=== PATIENT | female | born 1980 | race Caucasian/White ===

== ENCOUNTER → 2018-10-30 17:40 | Outpatient (CLI) | payer OTHER, SELFPAY ==
--- NOTE | 2018-10-30 17:48 | DI.MRI.S_ITS ---
PROCEDURE: MR HEAD/BRAIN WO CON INDICATIONS: MIGRAINE TECHNIQUE: Noncontrast axial T1 spin echo, axial T2 fast spin echo, sagittal and axial FLAIR, coronal T2 fast spin echo, axial gradient echo, axial diffusion and ADC through the brain. COMPARISON: None. FINDINGS: Image quality: Excellent. CSF Spaces: Basal cisterns are patent. There is extra-axial cystic structure posterior to cerebellum measuring 2.1 x 3.9 x 1.9 cm. It demonstrates MRI signal identical to CSF on all sequences, compatible with an arachnoid cyst. Ventricles are normal in size and shape. Brain: No intracranial masses or hemorrhage. Cruz/white matter interface is normal. Brainstem appears normal. Diffusion-weighted images demonstrate no acute ischemic insult. No chronic ischemic insults. Normal intravascular flow voids are present. Skull and face: Calvarium has normal marrow signal. Orbits appear normal. Sinuses: Sinuses and mastoids are clear. IMPRESSION: 1. A 2.1 x 3.9 x 1.0 cm arachnoid cyst posterior to cerebellum. 2. Otherwise normal exam. Dictated by: Serena Glover M.D. on 10/30/2018 at 22:44 Approved by: Serena Glover M.D. on 10/31/2018 at 9:31
== END ==
PROVIDERS: PCP Family Medicine; Visit Provider Family Medicine
DX: G43.909 Migraine, unspecified, not intractable, without status migrainosus (principal); G93.0 Cerebral cysts
CPT/HCPCS: 70551

== ENCOUNTER → 2020-06-23 11:05 | Outpatient (CLI) | payer OTHER, SELFPAY ==
[2020-06-23 12:48] LABS: TSH w/ Reflex to FT4 0.55 uIU/mL (0.47-4.68)
== END ==
PROVIDERS: PCP Registered Nurse; Referring Provider Registered Nurse; Visit Provider Registered Nurse
DX: F32.9 Major depressive disorder, single episode, unspecified (principal); L65.9 Nonscarring hair loss, unspecified
CPT/HCPCS: 36415; 84443

== ENCOUNTER → 2020-08-11 10:20 | Outpatient (CLI) | payer OTHER, SELFPAY ==
[2020-08-11 11:00] LABS: COVID19 -Nasal RAPID Negative (Negative)
== END ==
PROVIDERS: PCP Registered Nurse; Visit Provider Specialist
DX: Z01.812 Encounter for preprocedural laboratory examination (principal); Z20.828 Contact with and (suspected) exposure to other viral communicable diseases
CPT/HCPCS: 87635; C9803

== ENCOUNTER 2020-08-12 06:44 | Day surgery (SDC) | payer OTHER, SELFPAY ==
[2020-08-12] VITALS (7 sets, daily range): BP systolic 111–127; BP diastolic 68–77; PULSE 75–93; RESP 15–19; TEMP 36.6–37.2; O2SAT 91–99; BMI 37.5
--- NOTE | 2020-08-12 | PATH_ITS ---
[facility] Accession Number: [id number] . 01 Material submitted: . gastrointestinal site - GASTRIC BX . 01 Clinical history: . SDC . 02 Diagnosis: Stomach, Biopsy: Antral and body type mucosa with no diagnostic abnormality. Negative for Helicobacter by immunohistochemistry. Negative for intestinal metaplasia. Negative for dysplasia and malignancy. [facility] 08/15/2020 1526 Local . 02 Electronically signed: . Arianne Hernández MD, Pathologist NPI- [id number] . 01 Gross description: . GASTRIC BX: Received in formalin are multiple fragment(s) of slaughter, soft tissue measuring 0.4 x 0.4 x 0.1 cm in aggregate submitted entirely in 1 cassette(s) /[facility] 08/13/2020 0817 Local . 02 Microscopic: . An immunohistochemical stain was performed to evaluate for Helicobacter organisms and is negative. The control stain showed appropriate reactivity. . * This test was developed and its performance characteristics determined by [facility]. It has not been cleared or approved by the U.S. Food and Drug Administration. The FDA has determined that such clearance or approval is not necessary. This test is used for clinical purposes. It should not be regarded as investigational or for research. . 02 Pathologist provided ICD-10: R10.13 . 02 CPT . 703755, [id number] Performed at: 01 [facility] [address], [place], [place] [id number] MD Chung Mercedes MD Phone: [phone] Performed at: 02 [facility] [place] [address] [place], [place] [id number] MD Arianne Hernández MD Phone: [phone]
[2020-08-12] MEDS: LACTATED RINGERS 1,000 ML 100 ML IV (07:34)
--- NOTE | 2020-08-12 07:47 | PM.PREOP ---
Pre-operative Note COVID-19 COVID-19 status: Negative Interval Note History & Physical reviewed/Exam performed by Physician: Yes Changes to H&P: No ASA Class (for procedural sedation): II
[2020-08-12] MEDS: LIDOCAINE 4% SOLN 50 ML 20 ML TOP (08:04)
[2020-08-12] MEDS: fentaNYL 250 MCG/5 ML INJ IV (08:05)
[2020-08-12] MEDS: MIDAZOLAM 5 MG/5 ML VIAL IV (08:07)
--- NOTE | 2020-08-12 08:17 | PM.OP.ENDO ---
Operative Date/Time/Diagnoses Date of procedure: 08/12/20 Time of procedure: 08:17 Pre-op diagnosis: epigastric pain Post-op diagnosis: other (gastritis, hiatal hernia) Procedure & Clinicians Study performed: Esophagoduodenoscopy Same procedure as scheduled: Yes Indications: 40-year-old female with chronic epigastric pain here for EGD Surgeon: Jamal Nino Procedure Notes Procedure in detail: Patient placed in left lateral decubitus position. Time out was performed. Procedural sedation was administered with Versed and Fentanyl. A bite block was placed. the scope was inserted into the mouth and advanced through the esophagus and into the stomach. The pylorus was intubated and the duodenum was normal to the 2nd portion. The scope was retroflexed within the stomach and there was a small hiatal hernia. There was mild diffuse gastritis, no ulcers. Several random gastric biopsies were obtained with the biopsy forceps. The scope was withdrawn into the esophagus the Z line was seen at 40 cm from the incisions. There was no Teresa's esophagitis, masses or strictures. Stomach was desufflated and scope removed. Patient tolerated procedure well. Findings: gastritis and hiatal hernia Specimen(s): other (Gastric biopsy) Complications: none Impression: Hiatal hernia, gastritis Post-procedure Recommendations: Start medication(s) (Omeprazole) and Other recommendation (Biopsy results to follow) Follow up: as needed Disposition: same day surgery
== END 2020-08-12 09:42 | disposition home or self-care (01) ==
PROVIDERS: Surgery; PCP Registered Nurse; Referring Provider Specialist; Visit Provider Specialist
PROC: 0DJ08ZZ Inspection of Upper Intestinal Tract, Via Natural or Artificial Opening Endoscopic (ICD-10-PCS; CPT 43235; principal; 2020-08-12 07:45)
DX: K29.50 Unspecified chronic gastritis without bleeding (principal); K44.9 Diaphragmatic hernia without obstruction or gangrene
CPT/HCPCS: 43239; J2250; J3010

== ENCOUNTER → 2020-10-30 17:11 | Outpatient (CLI) | payer OTHER, SELFPAY ==
[2020-10-30 17:28] LABS: Add Manual Diff / Slide Review NO; Basophils Absolute Auto 100 /uL (0-100); Basophils Percent Auto 0.6 % (0-2); Eosinophils Absolute Auto 200 /uL (0-450); Eosinophils Percent Auto 2.3 % (2-4); Hematocrit 42.8 % (36-46); Hemoglobin 14.6 g/dL (12.0-16.0); Lymphocytes Absolute Auto 2600 /uL (1100-4500); Lymphocytes Percent Auto 24.2 % (25-40); Mean Corpuscular HGB Conc 34.1 % (30-36); Mean Corpuscular Hemoglobin 30.3 PG (26-34); Mean Corpuscular Volume 88.8 fL (80-100); Monocytes Absolute Auto 700 /uL (0-900); Monocytes Percent Auto 6.5 % (3-14); Neutrophils Absolute Auto 7200 /uL (1500-7000); Neutrophils Percent Auto 66.4 % (50-75); Platelet Count 290 X10^3/uL (150-400); Red Blood Cell Count 4.82 X10^6/uL (4.0-5.2); Red Cell Distribution Width 12.6 % (11.6-14.8); White Blood Cell Count 10.9 X10^3/uL (4.5-11.0)
[2020-10-30 17:56] LABS: Alanine Aminotransferase 24 IU/L (<35); Albumin 4.5 g/dL (3.5-5.0); Albumin Globulin Ratio 1.3 (1.0-2.8); Alkaline Phosphatase 86 U/L (38-126); Aspartate Aminotransferase 27 IU/L (14-36); BUN Creatinine Ratio 21.9 (6-22); Bilirubin Total 0.9 mg/dL (0.2-1.3); Blood Urea Nitrogen 16 mg/dL (7-17); Calcium 9.7 mg/dL (8.4-10.2); Carbon Dioxide 27 mmol/L (22-32); Chloride 104 mmol/L (98-107); Estimated Glomerular Filt Rate > 60.0 mL/min (>60); Globulin 3.4 g/dL (1.7-4.1); Glucose 97 mg/dL (70-100); HEMOLYSIS < 15 (0-50); Potassium 3.9 mmol/L (3.4-5.1); Sodium 138 mmol/L (137-145); Total Protein 7.9 g/dL (6.3-8.2)
[2020-10-30 17:58] LABS: Hemoglobin A1C% w Est Avg Glu 5.4 % (4.0-6.0)
== END ==
PROVIDERS: PCP Registered Nurse; Referring Provider Registered Nurse; Visit Provider Registered Nurse
DX: R53.83 Other fatigue (principal); Z87.898 Personal history of other specified conditions; F32.9 Major depressive disorder, single episode, unspecified; F41.9 Anxiety disorder, unspecified; K29.70 Gastritis, unspecified, without bleeding
CPT/HCPCS: 36415; 80053; 83036; 85025

== ENCOUNTER → 2020-11-03 10:36 | Outpatient (CLI) | payer OTHER, SELFPAY ==
[2020-11-03 11:18] LABS: BUN Creatinine Ratio 19.7 (6-22); Blood Urea Nitrogen 14 mg/dL (7-17); Estimated Glomerular Filt Rate > 60.0 mL/min (>60); HEMOLYSIS < 15 (0-50); Potassium 4.1 mmol/L (3.4-5.1)
== END ==
PROVIDERS: PCP Registered Nurse; Referring Provider Physician Assistant; Visit Provider Physician Assistant
DX: L29.8 Other pruritus (principal); L64.8 Other androgenic alopecia; L68.0 Hirsutism
CPT/HCPCS: 36415; 82565; 82627; 84132; 84520

== ENCOUNTER → 2020-11-28 10:06 | Outpatient (CLI) | payer OTHER, SELFPAY ==
--- NOTE | 2020-11-28 10:10 | DIET.PN ---
Dietary Progress Note Assessment: 40y F referred to nutrition for help c weight loss and a diet to better manage her IBS/GERD sx. Pt would like to move more, feel healthy, better support joints. IBS manifesting as nausea, horrible stomach cramps and spasms, diarrhea usually has a stressful time and experiences the sx recurring C.diff last occuring in July and treats c abx self-dx c GERD- constant acid reflux doesn't tolerate super acidic, citrus, etoh, sometimes tomato, avoids greasy food, no problem c mint doesn't seem to have problem c coffee (usually has c milk or cream) No eczema or psoriasis Pt has beginnings of arthritis in both knees, toes, right side shoulder all come and go Pt has maybe two migraines per month, cyclic in nature often with menstrual cycle, well controlled now, started at 13yo. had pre-eclampsea birthed baby at 36w, has two children Pt was getting up 4-5x/night had bladder stimulator implanted in back 2w ago, will help stress levels Usual Day: wakes 6am 4c coffee c creamer (dairygold vanilla) c raw sugar does not have breakfast this early takes biotin and collagen, MVI, viviscal hair support, wellbuterin, celexa, spiralactone 10am 10oz unsweetened almond milk, 1c frozen strawberries, 2 scoops protein powder Lunch between 12-2pm- does meal prep for lunches: shredded chicken, tomato sauce, gf noodles (rice/tapioca), broccolini, spaghetti squash usually protein c veggies, every other week starch of some sort) water all day (75-100oz/d) Sn: cheese stick, goldfish, gf pretzels, chips and salsa Dinner: usually Pro and veggies: chicken 2-3x/w, pork every other week, one week breakfast, most always green veggies right now 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 Pt recently started cooking from scratch and meal prepping for weeks at a time which has helped her to eat fewer refined grains (bread, crackers, chips). Pt has skewed sense of hunger and satiety either feeling hunger pains or overfilled. Pt sx do not show clear picture for cut and dry elimination diet, however she does endorse issues after eating alliums and gluten but has not cut either out of her diet completely before. Interventions: 1. To support weight maintenance and weight loss while maintaining healthy relationship to food, introduced pt to hunger scale. Pt endorses eating too quickly and sometimes overeating. Pt will practice assessing her hunger according to the scale, eat at a 3 and stop at an 8. 2. To address continuing sx of GERD/IBS, pt will start a modified-elimination diet to be followed for 4w which completely excludes gluten and alliums. 3. To further investigate upper GI sx, pt will look into Acid Watchers Diet book. Monitoring/Evaluations: f/u in 4w to assess progress, assess symptoms, and continue refining plan to address possible food triggers for sx.
== END ==
PROVIDERS: PCP Registered Nurse; Referring Provider Registered Nurse; Visit Provider Registered Nurse
DX: K58.9 Irritable bowel syndrome, unspecified (principal); K21.9 Gastro-esophageal reflux disease without esophagitis; E66.9 Obesity, unspecified; Z68.36 Body mass index [BMI] 36.0-36.9, adult; Z71.3 Dietary counseling and surveillance
CPT/HCPCS: 97802

== ENCOUNTER → 2021-01-26 13:16 | Outpatient (CLI) | payer OTHER, SELFPAY ==
[2021-01-26 14:49] LABS: COVID19 -Nasal RAPID Negative (Negative)
== END ==
PROVIDERS: PCP Registered Nurse; Visit Provider Student in an Organized Health Care Education/Training Program
DX: Z20.822 Contact with and (suspected) exposure to COVID-19 (principal)
CPT/HCPCS: 87635

== ENCOUNTER 2021-01-28 13:03 | Day surgery (SDC) | payer OTHER, SELFPAY ==
[2021-01-28] VITALS (11 sets, daily range): BP systolic 109–128; BP diastolic 68–83; PULSE 71–98; RESP 14–20; TEMP 36.3–37; O2SAT 88–98; BMI 36.9
--- NOTE | 2021-01-28 | PATH_ITS ---
[facility] Accession Number: [id number] . 01 Material submitted: . PART A: colon - RANDOM COLON BIOPSIES PART B: sigmoid colon - SIGMOID POLYP . 01 Clinical history: . A: HISTORY OF DIARRHEA . 02 Diagnosis: A. Random Colon, Biopsies: Colonic mucosa with no diagnostic abnormality. Negative for active, chronic, and microscopic colitis. Negative for dysplasia and malignancy. . B. Sigmoid Colon, Polyp, Biopsy: Colonic mucosa with thickened muscularis mucosa, most consistent with benign leiomyoma. Negative for atypia, epithelial dysplasia and malignancy. [facility] 02/02/2021 1439 Local . 02 Electronically signed: . Arianne Hernández MD, Pathologist NPI- [id number] . 01 Gross description: . A. Specimen A is received in formalin labeled random colon and consists of multiple slaughter fragments of soft tissue measuring 0.8 x 0.7 x 0.2 cm in aggregate. The specimen is entirely submitted in cassette A1. B. Specimen B is received in formalin labeled sigmoid polyp and consists of a 0.4 x 0.3 x 0.2 cm slaughter-pink fragment of soft tissue, which is entirely submitted in cassette B1. ([id number]) /[facility] 01/29/2021 1559 Local . 02 Pathologist provided ICD-10: R19.7 . 02 CPT . 093293, [id number] Performed at: 01 [facility] [address] [facility], [place], [place] [id number] MD Chung Mercedes MD Phone: [phone] Performed at: 02 [facility] [address] [place], [place] [id number] MD Arianne Hernández MD Phone: [phone]
[2021-01-28] MEDS: SODIUM CHLORIDE 0.9% 1,000 ML 84 ML IV (13:47)
[2021-01-28] MEDS: fentaNYL 250 MCG/5 ML INJ IV (14:31)
[2021-01-28] MEDS: MIDAZOLAM 5 MG/5 ML VIAL IV (14:31)
--- NOTE | 2021-01-28 14:50 | PM.HP.1 ---
History of Present Illness History of Present Illness Date Patient Seen: 01/28/21 Chief complaint: SDC Narrative: Diarrhea Patient History Medical History (Updated 01/28/21 @ 13:36 by Muna Tan RN) Arthritis C. difficile diarrhea Campylobacter diarrhea Other abnormal clinical finding Personal history of peptic ulcer disease Surgical History History of wisdom tooth extraction Hx of cystoscopy Family & Social History Family History Father Melanoma Grandfather Diabetes mellitus Grandmother Dementia Social History: household members spouse,children Tobacco & Substance use: Smoking Status Never smoker alcohol intake current alcohol intake frequency a few times a week Substance Use Type does not use Meds Home Medications and Allergies Home Medications Medication Instructions Recorded Confirmed Type bupropion HCl 150 mg 24 hr tablet, 300 mg PO QAM 11/21/18 01/28/21 History extended release zolmitriptan 5 mg tablet See Rx Instructions PO .COMPLEX 11/08/19 01/28/21 Rx #10 tab galcanezumab-gnlm 120 mg/mL 120 mg SUBCUT QMONTH 06/23/20 01/28/21 History subcutaneous pen injector meloxicam 7.5 mg tablet 7.5 mg PO DAILY PRN 07/15/20 01/28/21 History Allergies Allergy/AdvReac Type Severity Reaction Status Date / Time Sulfa (Sulfonamide Allergy Unknown Verified 08/12/20 07:56 Antibiotics) Exam Vital Signs (past 8 hours): - 01/28/21 13:47 Temperature 97.4 F L Pulse Rate 82 Respiratory Rate 16 Blood Pressure 118/77 Pulse Oximetry 97 Oxygen Delivery Method Room Air Narrative Exam Narrative: Oropharynx free of lesions Chest clear to auscultation percussion Cardiac exam reveals no S3 or murmur Assessment & Plan Assessment & Plan narrative: Intermittent diarrhea rule out microscopic colitis. Risks benefits alternatives have been explained.
--- NOTE | 2021-01-28 14:52 | PM.OP.ENDO ---
Operative Date/Time/Diagnoses Date of procedure: 01/28/21 Pre-op diagnosis: See indication Procedure & Clinicians Study performed: Colonoscopy Same procedure as scheduled: Yes Indications: Intermittent diarrhea Surgeon: Nelly Robledo Procedure Notes Procedure in detail: After informed consent was obtained the patient was placed in left lateral decubitus position. The video colonoscope was introduced the rectum slowly advanced cecum. Ic valve was intubated. On slow withdrawal mucosa was carefully examined. The scope was removed. The patient tolerated procedure well. Blood loss none Complications none Sedation Total sedation time 17 minutes Versed 5 mg fentanyl 150 mg IV titration Findings 1. Sigmoid diverticulosis 2. 10 x 5 mm semi sessile polyp in the sigmoid colon cold snared and removed completely 3. Otherwise negative colonoscopy to cecum. Random biopsies taken to rule out microscopic colitis. 4. Normal terminal ileum We will merely await the results of her biopsies. Most likely she will need follow-up colonoscopy in 5 years.
== END 2021-01-28 16:20 | disposition home or self-care (01) ==
PROVIDERS: PCP Registered Nurse; Referring Provider Internal Medicine Gastroenterology; Visit Provider Internal Medicine Gastroenterology
PROC: 0DJD8ZZ Inspection of Lower Intestinal Tract, Via Natural or Artificial Opening Endoscopic (ICD-10-PCS; CPT 45378; principal; 2021-01-28 14:00)
DX: R19.7 Diarrhea, unspecified (principal); Z87.19 Personal history of other diseases of the digestive system; K57.30 Diverticulosis of large intestine without perforation or abscess without bleeding
CPT/HCPCS: 45385; J2250; J3010

== ENCOUNTER 2022-12-25 21:19 | Emergency (ER) | payer OTHER, SELFPAY ==
[2022-12-25 21:36] VITALS: BP 136/77; PULSE 101; RESP 18; TEMP 37.7; O2SAT 98; BMI 32.5
[2022-12-25 22:36] LABS: Adenovirus Not Detected (Not Detect); B. parapertussis Not Detected (Not Detecte); Bordetella pertussis Not Detected (Not Detecte); Chlamydophila pneumoniae Not Detected (Not Detect); Coronavirus 229E Not Detected (Not Detect); Coronavirus HKU1 Not Detected (Not Detect); Coronavirus NL 63 Not Detected (Not Detect); Coronavirus OC43 Not Detected (Not Detect); Human Metapneumovirus Not Detected (Not Detect); Human Rhinovirus/Enterovirus Not Detected (Not Detect); Influenza A Detected (Not Detect); Influenza B Not Detected (Not Detect); Mycoplasma pneumoniae Not Detected (Not Detect); Parainfluenza Virus 1 Not Detected (Not Detect); Parainfluenza Virus 2 Not Detected (Not Detect); Parainfluenza Virus 3 Not Detected (Not Detect); Parainfluenza Virus 4 Not Detected (Not Detect); Respiratory Syncytial Virus Not Detected (Not Detect); SARS- CoV-2 Not Detected (Not Detecte)
--- NOTE | 2022-12-25 22:52 | ED.URI ---
HPI - URI/Sore Throat General Chief Complaint: Upper Respiratory Symptoms Stated Complaint: Pain in lungs/fever/coughing up blood Time Seen by Provider: 12/25/22 21:36 Source: patient Mode of arrival: Ambulatory History of Present Illness HPI Narrative: This is a 42-year-old female with history of borderline diabetes, anxiety and depression, migraines who presents with complaint of fever, nasal congestion, generalized body aches, little bit of chest discomfort, no shortness of breath, cough with clear sputum and a few streaks of blood. Patient states she is had a runny nose for a couple weeks she is been to Claritin. She started developing a hoarse cough and then started feeling significantly worse in the last day or so. Patient denies nausea or vomiting no diarrhea constipation. No abdominal back or flank pain. No swelling of extremities. No lightheadedness or passing out. She states she is had a prior knee surgery in the past. She is allergic to sulfa. Former smoker, occasional alcohol, no illicit. She states she took a home COVID test which was negative. 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 Related Data Home Medications Medication Instructions Recorded Confirmed galcanezumab-gnlm 120 mg/mL 120 mg SUBCUT QMONTH 06/23/20 12/10/22 subcutaneous pen injector (Emgality Pen) citalopram 40 mg tablet (Celexa) 40 mg PO DAILY 02/19/21 12/10/22 bupropion HCl 450 mg 24 hr tablet, 450 mg PO DAILY 12/10/22 12/10/22 extended release estradiol 0.05 mg/24 hr semiweekly 1 patch topical 2XW 12/10/22 12/10/22 transdermal patch progesterone micronized PO 12/10/22 12/10/22 semaglutide 2 mg/dose (8 mg/3 mL) 2 mg SUBCUT QWEEK 12/10/22 12/10/22 subcutaneous pen injector (Ozempic) Previous Rx's Medication Instructions Recorded zolmitriptan 5 mg tablet (Zomig) See Rx Instructions PO .COMPLEX 11/08/19 #10 tabs Allergies Allergy/AdvReac Type Severity Reaction Status Date / Time Sulfa (Sulfonamide AdvReac Intermediate Hallucinati Verified 12/10/22 15:39 Antibiotics) ng Review of Systems Review of Systems ROS Unobtainable: All systems reviewed & are unremarkable except as noted in HPI and below Patient History Medical History Arthritis C. difficile diarrhea Campylobacter diarrhea Left foot pain Other abnormal clinical finding Personal history of peptic ulcer disease Surgical History History of wisdom tooth extraction Hx of cystoscopy Family History Father Melanoma Grandfather Diabetes mellitus Grandmother Dementia Social History marital status: household members: spouse and children occupational status: employed Smoking Status: Former smoker Tobacco: How many years used: 4 alcohol intake: current (3 drinks per month ) substance use type: does not use Smoking Status: Former smoker alcohol intake frequency: a few times a week Substance Use Type: does not use Exam Narrative Exam Narrative: GEN: well nourished, female, alert and oriented x 3, patient appears to be in mild distress. HEENT: Atraumatic, pupils are equal round reactive to light, extraocular movements are intact, nares have bilateral rhinorrhea and patient sounds congested, TMs are clear with no fluid, there is no conjunctival pallor. Throat is clear without any exudates, erythema, tonsillar enlargement or uvular deviation, patient is hoarse. No stridor. HEART: Regular rate and rhythm without murmur, clicks, rubs. LUNGS:Lungs clear to auscultation, no wheezes, rales, crackles, chest moves symmetrically, no tachypnea or accessory muscle use. ABD:bowel sounds normal, soft, non-tender, no guarding, rebound, rigidity, no masses noted, no hepatosplenomegaly :No CVA tenderness MSCL: Non-tender, no muscle atrophy, muscles strength 5/5 upper and lower extremities, full range of motion, normal gait NEURO:CN 2-12 intact, sensation normal SKIN: No rash, erythema or other skin changes. Initial Vital Signs Initial Vital Signs: Vital Signs Temperature 99.8 F H 12/25/22 21:36 Pulse Rate 101 H 12/25/22 21:36 Respiratory Rate 18 12/25/22 21:36 Blood Pressure 136/77 12/25/22 21:36 Pulse Oximetry 98 12/25/22 21:36 Oxygen Delivery Method Room Air 12/25/22 21:36 Course Orders Ordered: ED Orders 12/25/22 21:35 Respiratory Panel (Film Array) Stat Vital Signs Vital signs: Vital Signs - 8 hr 12/25/22 21:36 Temperature 99.8 F H Pulse Rate 101 H Respiratory Rate 18 Blood Pressure 136/77 Pulse Oximetry 98 Oxygen Delivery Method Room Air MDM - URI/Sore Throat Lab Data Labs: Lab Results 12/25/22 Range/Units 21:35 Chlamy pneumoniae PCR Not detected (Not Detect) Adenovirus (PCR) Not detected (Not Detect) B. pertussis DNA (PCR) Not detected (Not Detecte) B.parapertussis DNA PCR Not detected (Not Detecte) Coronavirus OC43 (PCR) Not detected (Not Detect) Coronavirus HKU1 (PCR) Not detected (Not Detect) Coronavirus 229E (PCR) Not detected (Not Detect) SARS-CoV-2 (PCR) Not detected (Not Detecte) Coronavirus NL63 (PCR) Not detected (Not Detect) Human Metapneumovir PCR Not detected (Not Detect) Influenza Type A (PCR) Detected H (Not Detect) Influenza Type B (PCR) Not detected (Not Detect) M. pneumoniae (PCR) Not detected (Not Detect) Parainfluenza 1 (PCR) Not detected (Not Detect) Parainfluenza 2 (PCR) Not detected (Not Detect) Parainfluenza 3 (PCR) Not detected (Not Detect) Parainfluenza 4 (PCR) Not detected (Not Detect) RSV (PCR) Not detected (Not Detect) Entero/Rhino (PCR) Not detected (Not Detect) MDM Narrative Medical decision making narrative: This is a 42-year-old female with generalized systems consistent with viral infection she did have recent cough she is had clear sputum with some slight streaks. She is not febrile here in the department but notes subjective fevers at home. Patient's exam shows congestion woman consistent with viral upper respiratory infection, hoarseness and lungs are clear. Patient is not tachycardic. Her respiratory panel is positive for influenza A. Patient is nontoxic appearing and felt appropriate for discharge home. She states she will take Tylenol ibuprofen at home. We discussed Tamiflu but she defers. All questions answered. Return precautions discussed. Discharge Plan Departure Patient Disposition: Home Clinical Impression: Influenza A Instructions: DI for Influenza -- Adult Activity Restrictions/Additional Instructions: Follow-up as needed. You may take Tylenol up to a 1000 mg every 6 hours and/or ibuprofen up to 600 mg every 6 hours. Make sure you drink plenty of fluids. You can take zofran 4mg every 6 hours as needed for nausea/vomiting. Please return for rapidly worsening symptoms new shortness of breath, lightheadedness or passing out, persistent vomiting, new swelling in her extremities, worsening chest pain or other new or concerning changes. Prescriptions: No Action Emgality Pen 120 mg/mL pen injector 120 mg SUBCUT QMONTH citalopram [Celexa] 40 mg tablet 40 mg PO DAILY bupropion HCl 450 mg tablet extended release 24 hr 450 mg PO DAILY Ozempic 2 mg/dose (8 mg/3 mL) pen injector 2 mg SUBCUT QWEEK Patient Comments: INJECT 2 MG SUBCUTANEOUSLY WEEKLY estradiol 0.05 mg/24 hr patch semiweekly 1 patch topical 2XW Patient Comments: apply apply 1 patch two times a week as directed progesterone micronized PO zolmitriptan [Zomig] 5 mg tablet See Rx Instructions PO .COMPLEX Qty: 10 3RF Rx Instructions: take 1 tab at onset of headache; if no relief may repeat 1 tab in 2hr; max = 2 tabs/24 hrs PO Referrals: Karolina Silva DO [Primary Care Provider] - Stand Alone Forms: Patient Portal/API
== END 2022-12-25 23:10 | disposition home or self-care (01) ==
PROVIDERS: Emergency Provider Emergency Medicine; PCP Family Medicine
DX: J10.1 Influenza due to other identified influenza virus with other respiratory manifestations (principal); Z87.891 Personal history of nicotine dependence
CPT/HCPCS: 87633; 99281; 99282

== ENCOUNTER → 2023-06-15 12:20 | Outpatient (CLI) | payer OTHER, SELFPAY ==
--- NOTE | 2023-06-15 12:20 | DI.US.S_ITS ---
PROCEDURE: US ABDOMEN COMPLETE INDICATIONS: PAIN, INDIGESTION TECHNIQUE: Real-time scanning was performed of the abdominal and retroperitoneal organs, with image documentation. COMPARISON: None. FINDINGS: Liver: Liver is normal in size and homogeneous in echotexture. Gallbladder: Tiny echogenic polyp measuring 2 mm. No gallstones or sludge. Biliary ducts: Intrahepatic bile ducts are non-dilated. Extrahepatic bile duct caliber measures 6 mm. Normal is 6-7 mm or less in diameter, or 10 mm or less post-cholecystectomy. Pancreas: Main pancreatic duct is prominent measuring 5 mm. Visualized portions of the pancreas are otherwise sonographically normal. Spleen: Spleen is normal in size and homogeneous in echotexture. Kidneys: Kidneys are normal in size and echotexture. Right kidney measures 11.9 cm long; left kidney measures 10.3 cm long. No hydronephrosis or nephrolithiasis. No solid masses. Aorta: Visualized aorta is normal in caliber at less than 3 cm. Iliacs: Proximal common iliac arteries are normal in caliber at less than 2.5 cm. IVC: Intrahepatic inferior vena cava is patent. Miscellaneous: No free abdominal fluid. IMPRESSION: 1. Tiny polyp in the gallbladder measuring 2 mm. Gallbladder is otherwise unremarkable. No additional follow-up needed. 2. Main pancreatic duct is prominent measuring 5 mm which is nonspecific and may represent sequela of pancreatitis or upstream stricture. No sonographic evidence of a mass. If there is ongoing clinical concern, a CT or MRI (pancreas protocol) can be performed for further evaluation. Dictated by: Ilda Joe M.D. on 06/15/2023 at 14:27 Approved by: Ilda Joe M.D. on 06/15/2023 at 14:35
== END ==
PROVIDERS: PCP Family Medicine; Referring Provider Family Medicine; Visit Provider Family Medicine
DX: R10.9 Unspecified abdominal pain (principal); K82.4 Cholesterolosis of gallbladder
CPT/HCPCS: 76700

== ENCOUNTER → 2023-08-15 12:19 | Outpatient (CLI) | payer OTHER, SELFPAY ==
--- NOTE | 2023-08-15 12:21 | DI.RAD.S_ITS ---
PROCEDURE: XR CHEST 2V INDICATIONS: cough x 2 weeks TECHNIQUE: 2 views of the chest were acquired. COMPARISON: None. FINDINGS: Surgical changes and devices: None. Lungs and pleura: Lungs are clear. No consolidation. No pleural effusions or pneumothorax. Mediastinum: Mediastinal contours are normal. Heart size is normal. Bones and chest wall: No suspicious bony abnormalities. Soft tissues appear unremarkable. IMPRESSION: No acute cardiopulmonary abnormality. Dictated by: Ryan Braga M.D. on 08/15/2023 at 13:47 Approved by: Ryan Braga M.D. on 08/15/2023 at 13:47
[2023-08-15 13:07] LABS: Add Manual Diff / Slide Review NO; Basophils Absolute Auto 100 /uL (0-100); Basophils Percent Auto 0.8 % (0-2); Eosinophils Absolute Auto 300 /uL (0-450); Eosinophils Percent Auto 3.6 % (2-4); Hematocrit 40.2 % (36-46); Lymphocytes Absolute Auto 2300 /uL (1100-4500); Lymphocytes Percent Auto 29.4 % (25-40); Mean Corpuscular HGB Conc 34.7 % (30-36); Mean Corpuscular Volume 89.4 fL (80-100); Monocytes Absolute Auto 500 /uL (0-900); Monocytes Percent Auto 6.6 % (3-14); Neutrophils Absolute Auto 4700 /uL (1500-7000); Neutrophils Percent Auto 59.6 % (50-75); Platelet Count 298 X10^3/uL (150-400); Red Cell Distribution Width 12.6 % (11.6-14.8)
[2023-08-15 13:30] LABS: Alanine Aminotransferase 15 IU/L (<35); Albumin 4.1 g/dL (3.5-5.0); Albumin Globulin Ratio 1.4 (1.0-2.8); Alkaline Phosphatase 58 U/L (38-126); Aspartate Aminotransferase 20 IU/L (14-36); BUN Creatinine Ratio 15.2 (6-22); Bilirubin Total 1.1 mg/dL (0.2-1.3); Blood Urea Nitrogen 10 mg/dL (7-17); Calcium 9.8 mg/dL (8.4-10.2); Carbon Dioxide 24 mmol/L (22-32); Chloride 103 mmol/L (98-107); Estimated Glomerular Filt Rate > 60 mL/min (>60); Globulin 2.9 g/dL (1.7-4.1); Glucose 84 mg/dL (70-100); HEMOLYSIS < 15 (0-50); Potassium 3.8 mmol/L (3.4-5.1); Sodium 136 mmol/L (137-145)
== END ==
PROVIDERS: PCP Family Medicine; Referring Provider Physician Assistant; Visit Provider Physician Assistant
DX: R05.9 Cough, unspecified (principal)
CPT/HCPCS: 71046; 80053; 85025

== ENCOUNTER 2024-02-27 19:14 | Emergency (ER) | payer OTHER, SELFPAY ==
[2024-02-27 19:29] VITALS: BP 125/69; PULSE 77; RESP 16; TEMP 36.5; O2SAT 100; BMI 28.5
[2024-02-27 21:33] VITALS: BP 124/67
[2024-02-27 21:34] VITALS: PULSE 79; O2SAT 97
[2024-02-27] MEDS: ACETAMINOPHEN 325 MG TABLET PO (21:51)
[2024-02-27] MEDS: IBUPROFEN 400 MG TABLET PO (21:51)
[2024-02-27 22:00] VITALS: PULSE 75; O2SAT 96
[2024-02-27 22:30] VITALS: PULSE 76; O2SAT 96
--- NOTE | 2024-02-28 00:10 | ED_ITS ---
HPI - General Adult General Chief complaint: Ear Stated complaint: poss ear infection rt Time Seen by Provider: 02/27/24 21:41 Source: patient Mode of arrival: Ambulatory History of Present Illness HPI narrative: 43-year-old woman with history of arthritis, hyperinsulinemia with intermittent upper respiratory infection symptoms for the last 6 weeks still with nasal congestion cough is resolving and over the last 24 hours is developing s ignificant right ear pain. There has been no drainage from the ear. No significant fevers. She has been using appropriate iosv-mlt-amavmyj medications to treat her upper respiratory symptoms. She has not complaining of abdominal pain, vomiting, diarrhea. No chest pain or palpitations. Related Data Home Medications Medication Instructions Recorded Confirmed galcanezumab-gnlm 120 mg/mL 120 mg SUBCUT QMONTH 06/23/20 10/04/23 subcutaneous pen injector (Emgality Pen) citalopram 40 mg tablet (Celexa) 40 mg PO DAILY 02/19/21 10/04/23 bupropion HCl 450 mg 24 hr tablet, 450 mg PO DAILY 12/10/22 10/04/23 extended release estradiol 0.05 mg/24 hr semiweekly 1 patch topical 2XW 12/10/22 10/04/23 transdermal patch progesterone micronized PO 12/10/22 10/04/23 semaglutide 2 mg/dose (8 mg/3 mL) 2 mg SUBCUT QWEEK 12/10/22 10/04/23 subcutaneous pen injector (Ozempic) acetaminophen 500 mg tablet 1,000 mg PO QID PRN 01/19/23 10/04/23 (Tylenol Extra Strength) Previous Rx's Medication Instructions Recorded zolmitriptan 5 mg tablet (Zomig) See Rx Instructions PO .COMPLEX 05/23/23 #10 tabs albuterol sulfate 90 mcg/actuation 2 puff inhalation Q6H PRN 08/15/23 aerosol inhaler shortness of breath or wheezing #8.5 grams fluticasone propionate 110 1 puff inhalation BID #12 grams 08/15/23 mcg/actuation HFA aerosol inhaler (Flovent HFA) amoxicillin 500 mg capsule 500 mg PO TID #21 caps 02/28/24 Allergies Allergy/AdvReac Type Severity Reaction Status Date / Time Sulfa (Sulfonamide AdvReac Intermediate Hallucinati Verified 02/27/24 19:29 Antibiotics) ng Review of Systems Review of Systems Narrative: Pertinent positive and negative findings as per HPI Patient History Medical History Arthritis C. difficile diarrhea Campylobacter diarrhea Left foot pain Other abnormal clinical finding Personal history of peptic ulcer disease Surgical History History of wisdom tooth extraction Hx of cystoscopy Family History Father Melanoma Grandfather Diabetes mellitus Grandmother Dementia Social History marital status: household members: spouse and children occupational status: employed Smoking Status: Former smoker Tobacco: How many years used: 4 alcohol intake: current substance use type: does not use Smoking Status: Former smoker alcohol intake frequency: a few times a week Substance Use Type: does not use Exam Initial Vital Signs Initial Vital Signs: Vital Signs Temperature 97.7 F 02/27/24 19:29 Pulse Rate 77 02/27/24 19:29 Respiratory Rate 16 02/27/24 19:29 Blood Pressure 125/69 02/27/24 19:29 Pulse Oximetry 100 02/27/24 19:29 Oxygen Delivery Method Room Air 02/27/24 19:29 General: Healthy appearing, in no acute distress. Able to give a complete and coherent history. Well-nourished well-developed HEENT: Moist mucous membranes, normal sclera with reactive pupils, nasal stuffiness. Right tympanic membrane is erythematous and bulging. Left is unremarkable Neck: , supple Respiratory: Lungs are clear to auscultation, no wheezing no rales no rhonchi. Full and symmetrical air movement Cardiac: Regular rate and rhythm no murmurs no bruits Abdomen: Soft, nontender, good bowel tones, no flank pain Skin: Warm and dry, no rashes Neurologic: Grossly neurologically intact with no obvious asymmetries or abnormalities Extremities: No trauma, well perfused Psych: Cooperative, appropriate insight and affect Course Orders Ordered: Discontinued Medications Acetaminophen (Acetaminophen 325 Mg Tablet) 325 mg PO NOW ONE Stop: 02/27/24 21:43 Last Admin: 02/27/24 21:51 Dose: 325 mg Documented By: JORGE Amoxicillin (Amoxicillin 250 Mg Capsule) 500 mg PO NOW ONE Stop: 02/28/24 00:14 Ibuprofen (Ibuprofen 400 Mg Tablet) 400 mg PO NOW ONE Stop: 02/27/24 21:43 Last Admin: 02/27/24 21:51 Dose: 400 mg Documented By: JORGE Vital Signs Vital signs: Vital Signs - 8 hr 02/27/24 19:29 02/27/24 21:33 02/27/24 21:34 Temperature 97.7 F Pulse Rate 77 79 Respiratory Rate 16 Blood Pressure 125/69 124/67 Pulse Oximetry 100 97 Oxygen Delivery Method Room Air Room Air 02/27/24 22:00 02/27/24 22:30 Temperature Pulse Rate 75 76 Respiratory Rate Blood Pressure Pulse Oximetry 96 96 Oxygen Delivery Method Medical Decision Making [facility] Narrative Medical decision making narrative: 43-year-old woman with hyperinsulinemia, upper respiratory symptoms intermittently for the last 6 weeks and 24 hours of increasing right ear pain Differential includes bacterial otitis, viral otitis, peritonsillar abscess, bacterial pneumonia On exam she has an obvious bulging right tympanic membrane consistent with a bacterial otitis She is started on amoxicillin in the emergency department with a 7 day prescription sent to her pharmacy Discussion: 43-year-old woman with 6 weeks of respiratory symptoms likely viral now with bacterial otitis. We will treat with amoxicillin. She understands need for follow up if symptoms are not improving. We discussed ibuprofen and Tylenol reasons to return to the emergency department. Questions are answered she is safe for discharge Discharge Plan Departure Patient Disposition: Home Clinical Impression: Otitis media Qualifiers: Otitis media type: suppurative Chronicity: acute Laterality: right Recurrence: non-recurrent Spontaneous tympanic membrane rupture: without spontaneous rupture Qualified Code(s): H66.001 - Acute suppurative otitis media without spontaneous rupture of ear drum, right ear Instructions: DI for Otitis Media (Middle Ear Infection)-Child Activity Restrictions/Additional Instructions: Thank you for coming in tonight Think with your 6 weeks of upper respiratory symptoms, bacteria have finally taken advantage of you and you are developing a bacterial middle ear infection on the right side which is causing your pain. I have given you a prescription for amoxicillin and it has been electronically transmitted to [facility] in [place] [facility] up tomorrow. Using 400 mg of ibuprofen (2 dujg-kel-cnliwhy pills) and 1 Tylenol every 6 hours can be very helpful in controlling pain. If you find that you are getting worse or develop any new symptoms, please feel free to return to the emergency department for further evaluation. Prescriptions: New amoxicillin 500 mg capsule 500 mg PO TID Qty: 21 0RF No Action albuterol sulfate 90 mcg/actuation HFA aerosol inhaler 2 puff inhalation Q6H PRN (Reason: shortness of breath or wheezing) Qty: 8.5 0RF fluticasone propionate [Flovent HFA] 110 mcg/actuation HFA aerosol inhaler 1 puff inhalation BID Qty: 12 0RF zolmitriptan [Zomig] 5 mg tablet See Rx Instructions PO .COMPLEX Qty: 10 3RF Rx Instructions: take 1 tab at onset of headache; if no relief may repeat 1 tab in 2hr; max = 2 tabs/24 hrs PO acetaminophen [Tylenol Extra Strength] 500 mg tablet 1,000 mg PO QID PRN Emgality Pen 120 mg/mL pen injector 120 mg SUBCUT QMONTH citalopram [Celexa] 40 mg tablet 40 mg PO DAILY bupropion HCl 450 mg tablet extended release 24 hr 450 mg PO DAILY Ozempic 2 mg/dose (8 mg/3 mL) pen injector 2 mg SUBCUT QWEEK Patient Comments: INJECT 2 MG SUBCUTANEOUSLY WEEKLY estradiol 0.05 mg/24 hr patch semiweekly 1 patch topical 2XW Patient Comments: apply apply 1 patch two times a week as directed progesterone micronized PO Referrals: Karolina Silva DO [Primary Care Provider] - Stand Alone Forms: Patient Portal/API
[2024-02-28] MEDS: AMOXICILLIN 250 MG CAPSULE 500 MG PO (00:35)
== END 2024-02-28 00:38 | disposition home or self-care (01) ==
PROVIDERS: Emergency Provider Emergency Medicine; PCP Family Medicine
DX: H66.001 Acute suppurative otitis media without spontaneous rupture of ear drum, right ear (principal); Z87.891 Personal history of nicotine dependence
CPT/HCPCS: 99283

== ENCOUNTER → 2024-06-29 08:28 | Outpatient (CLI) | payer OTHER, SELFPAY ==
--- NOTE | 2024-06-29 08:29 | DI.RAD.S_ITS ---
PROCEDURE: XR KNEE LT 3V INDICATIONS: knee pain TECHNIQUE: 3 views of the knee were acquired. COMPARISON: CR, XR KNEE 4+ VIEWS BILATERAL, 07/03/2018, 13:52. FINDINGS: Bones: No fractures or dislocations. No suspicious bony lesions. The femorotibial joint spaces demonstrate minimal narrowing laterally and medially. On the sunrise view, there is mild lateral patellofemoral joint space narrowing seen. Osteophyte formation can be seen along the margins of the patella. Soft tissues: No joint effusion. No suspicious soft tissue calcifications. IMPRESSION: Focal lateral patellofemoral joint space narrowing, with remodeling change. The degenerative changes are worse than in 2018. If it would be helpful for clinical management decision making, please consider a dedicated, scheduled knee MRI for further evaluation (assuming that there is no contraindication). Dictated by: Kadeem Hutchinson M.D. on 06/29/2024 at 18:04 Approved by: Kadeem Hutchinson M.D. on 06/29/2024 at 18:06
== END ==
PROVIDERS: PCP Family Medicine; Referring Provider Nurse Practitioner Family; Visit Provider Nurse Practitioner Family
DX: M25.562 Pain in left knee (principal)
CPT/HCPCS: 73562